=== PATIENT | male | born 1990 | race Two or more races ===

== ENCOUNTER 2025-05-15 20:12 | Emergency (ER) | payer MEDICAID, OTHER ==
[~2025-05-15] VITALS: Ht 185.4 cm; Wt 114.8 kg
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
[2025-05-16] MEDS: KETOROLAC TROMETH 60MG/2ML VIAL IM ONE (00:36)
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
[2025-05-16] MEDS: HYDROcodone-ACET 10/325MG TAB PO ONE (00:37)
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
[2025-05-16] MEDS ORDERED: NABU-74 PO (01:25)
[2025-05-16] MEDS ORDERED: TIZA-142 PO (01:25)
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
[2025-05-16 01:49] VITALS: BP 121/75; PULSE 86; RESP 20; TEMP 98.6; O2SAT 98
== END 2025-05-16 01:51 | disposition home or self-care (01) ==
LOC: ER 20:19
DX: S13.4XXA Sprain of ligaments of cervical spine, initial encounter (principal); S33.5XXA Sprain of ligaments of lumbar spine, initial encounter; S66.912A Strain of unspecified muscle, fascia and tendon at wrist and hand level, left hand, initial encounter; S29.012A Strain of muscle and tendon of back wall of thorax, initial encounter; S20.213A Contusion of bilateral front wall of thorax, initial encounter; S60.221A Contusion of right hand, initial encounter; V89.2XXA Person injured in unspecified motor-vehicle accident, traffic, initial encounter; Y93.89 Activity, other specified; Y92.410 Unspecified street and highway as the place of occurrence of the external cause; Y99.8 Other external cause status
CPT/HCPCS: 71111; 72040; 72070; 72100; 73110; 73130; 96372; 99284; J1885

== ENCOUNTER 2025-06-09 17:30 | Inpatient (IN) | payer MEDICAID ==
[~2025-06-09] VITALS: Ht 185.4 cm; Wt 114.1 kg
--- NOTE | 2025-06-09 18:30 | ED.PDOC ---
History of Present Illness HPI Comments 35-year-old male presents to the ER with prior medical history of gastritis, arthritis and a chief complaint of left lower extremity pain. Patient reports on having had a left lower extremity pain for the past four days in informed his PCP for which scheduled an outpatient ultrasound for which was done today. Patient was informed that there was findings of a possible DVT to the left lower extremity in informed to go to the ER. Patient notes on having had chest tightness associated with shortness a breath for 3-4 days. Denies any other symptoms at this time. Denies chills, fever, N/V/D. No other associated symptoms, modifiers, recent injuries or sick contacts present at this time. Chief Complaint: Lower Extremity Time Seen by MD: 18:15 Reviewed Notes: Nurses Notes, Medications, Allergies Allergies: Coded Allergies: NO KNOWN ALLERGIES (Unverified , 05/15/25) Information Source: Patient Mode of Arrival: Ambulatory Severity: Moderate Timing: Days Duration: Since onset, Days Prehospital treatment: None Past Medical History PAST MEDICAL HISTORY: Arthritis Past Medical History (Other): Gastritis Surgical History: Denies all surgeries Family History Family History: Reviewed,noncontributory to illness, Family hx of Cancer (Kidney) Social History Smoker: Non-Smoker Alcohol: Denies ETOH Use Drugs: Marijuana Lives In: Home Constitutional: denies: chills, diaphoresis, fatigue, fever, malaise, sweats, weakness, others EENTM: denies: blurred vision, double vision, ear bleeding, ear discharge, ear drainage, ear pain, ear ringing, eye pain, eye redness, hearing loss, mouth pain, mouth swelling, nasal discharge, nose bleeding, nose congestion, nose pain, photophobia, tearing, throat pain, throat swelling, voice changes, others Respiratory: reports: shortness of breath; denies: cough, hemoptysis, orthopnea, SOB at rest, SOB with excertion, stridor, wheezing, others Cardiovascular: reports: chest pain; denies: dizzy spells, diaphoresis, Dyspnea on exertion, edema, irregular heart beat, left arm pain, lightheadedness, pal pitations, PND, syncope, others Gastrointestinal: denies: abdomen distended, abdominal pain, blood streaked bowels, constipated, diarrhea, dysphagia, difficulty swallowing, hematemesis, melena, nausea, poor appetite, poor fluid intake, rectal bleeding, rectal pain, vomiting, others Genitourinary: denies: burning, dysuria, flank pain, frequency, hematuria, incontinence, penile discharge, penile sore, pain, testicle pain, testicle swelling, urgency, others Neurological: denies: dizziness, fainting, headache, left sided numbness, left sided weakness, numbness, paresthesia, pre-existing deficit, right sided numbness, right sided weakness, seizure, speech problems, tingling, tremors, weakness, others Musculoskeletal: reports: others (Left lower extremity pain); denies: back pain, gout, joint pain, joint swelling, muscle pain, muscle stiffness, neck pain Integumetry: denies: bruises, change in color, change in hair/nails, dryness, laceration, lesions, lumps, rash, wounds, others Allergic/Immunocompromised: denies: Difficulty Healing, Frequent Infections, Hives, Itching, others Hematologic/Lymphatic: denies: anemia, blood clots, easy bleeding, easy bruising, swollen glands, others Endocrine: denies: excessive hunger, excessive sweating, excessive thirst, excessive urination, flushing, intolerance to cold, intolerance to heat, unexplained weight gain, unexplained weight loss, others Psychiatric: denies: anxiety, bipolar disorder, depression, hopeless, panic disorder, schizophrenia, sleepless, suicidal, others All Other Systems: Reviewed and Negative Physical Exam General Appearance: Moderate Distress HEENT: Normal ENT Inspection, Pharynx Normal, TMs Normal Neck: Full Range of Motion, Non-Tender, Normal, Normal Inspection Respiratory: Chest Non-Tender, Lungs Clear, No Accessory Muscle Use, No Respiratory Distress, Normal Breath Sounds Cardiovascular: No Edema, No JVD, No Murmur, No Gallop, Normal Peripheral Pulses, Regular Rate/Rhythm Breast Exam: Deferred Gastrointestinal: No Organomegaly, Non Tender, No Pulsatile Mass, Normal Bowel Sounds, Soft Genitalia: Deferred Pelvic: Deferred Rectal: Deferred Extremities: No calf tenderness, Normal capillary refill, No pedal edema, Tender (Tenderness to the left lower extremity) Musculoskeletal : Apperance: Normal Neurologic: Alert, senior loan officer II-XII nml as Tested, No Motor Deficits, Normal Affect, Normal Mood, No Sensory Deficits Cerebellar Function: Normal Reflexes: Normal Skin: Dry, Normal Color, Warm Lymphatic: No Adenopathy Was a procedure done? Was a procedure done?: No Differential Dx Considerations may include: Strain, fracture, DVT X-Ray, Labs, Meds, VS Vital Signs Date Time Temp Pulse Resp B/P (MAP) Pulse Ox O2 Delivery O2 Flow Rate FiO2 06/09/25 22:10 97.8 70 17 139/87 (104) 97 97.8 06/09/25 19:44 87 15 157/72 06/09/25 17:45 98.2 120 18 134/80 100 98.2 Lab Test 06/09/25 18:35 Range/Units White Blood Count 7.0 4.4-10.8 10^3/uL Red Blood Count 4.23 L 4.5-5.90 10^6/uL Hemoglobin 12.9 L 13.5-17.5 g/dL Hematocrit 36.0 L 41.0-53.0 % Mean Corpuscular Volume 85.0 80.0-100.0 fL Mean Corpuscular Hemoglobin 30.4 28.0-32.0 pg Mean Corpuscular Hemoglobin Concent 35.8 32.0-36.0 g/dL Red Cell Distribution Width 12.9 11.8-14.3 % Platelet Count 116 L 140-450 10^3/uL Mean Platelet Volume 8.5 6.9-10.8 fL Neutrophils (%) (Auto) 78.5 37.0-80.0 % Lymphocytes (%) (Auto) 15.1 10.0-50.0 % Monocytes (%) (Auto) 6.1 0.0-12.0 % Eosinophils (%) (Auto) 0.0 0.0-7.0 % Basophils (%) (Auto) 0.3 0.0-2.0 % Neutrophils # (Auto) 5.5 1.6-8.6 10 ^3/uL Lymphocytes # (Auto) 1.1 0.4-5.4 10 ^3/uL Monocytes # (Auto) 0.4 0-1.3 10 ^3/uL Eosinophils # (Auto) 0 0-0.8 10 ^3/uL Basophils # (Auto) 0 0-0.2 10 ^3/uL Nucleated Red Blood Cells 0.0 % D-Dimer, Quantitative 1.70 H 0.0-0.49 mg/L FEU Urine Color Yellow Yellow Urine Clarity Clear Clear Urine pH 6.5 5.0-9.0 Urine Specific [place] 1.042 H 1.001-1.035 Urine Protein 1+ H Negative Urine Ketones Trace Negative Urine Blood Negative Negative /uL Urine Nitrite Negative Negative Urine Bilirubin Negative Negative Urine Urobilinogen 6 Negative mg/dL Urine Leukocyte Esterase Negative Negative /uL Urine RBC 1 0 - 3 /hpf Urine Microscopic WBC 1 0-3 /HPF Urine Squamous Epithelial Cells None seen <5 /hpf Urine Bacteria None seen None Seen /hpf Urine Mucus Few None Seen Urine Glucose Normal Normal mg/dL Sodium Level 141 136-145 mmol/L Potassium Level 4.0 3.5-5.1 mmol/L Chloride Level 104 98-107 mmol/L Carbon Dioxide Level 27 20-31 mmol/L Anion Gap 10 5-15 Blood Urea Nitrogen 18 9-23 mg/dL Creatinine 0.89 0.700-1.30 mg/dL Glomerular Filtration Rate Calc 113 >90 mL/min BUN/Creatinine Ratio 20.2 H 10.0-20.0 Serum Glucose 98 74-106 mg/dL Calcium Level 9.3 8.7-10.4 mg/dL Current Medications Medications (Trade) Dose Ordered Sig/Deni Route Start Time Stop Time Status Last Admin Morphine Sulfate 4 mg ONCE ONCE IV 06/09/25 19:30 06/09/25 19:31 DC 06/09/25 19:44 Ondansetron HCl (Zofran) 4 mg ONCE ONCE IV 06/09/25 19:30 06/09/25 19:31 DC 06/09/25 19:44 IV Hep-Lock was established The patient was given morphine 4 mg IV push for the pain The patient was given Zofran 4 mg IV push for the nausea. The chemistry panel is within normal limits. The D-dimer is elevated at 1.7 The urine test is negative for any infection The patient's CBC is within normal limits A CAT scan of the chest was done to rule out PE in his negative The patient is still having significant persistent pain so the patient is being admitted at this time Images Reviewed?: Images reviewed and evaluated by me Time of 1ST Reevaluation: 18:45 Reevaluation 1ST: Unchanged Patient Education/Counseling: Diagnosis, Treatment, Prognosis Family Education/Counseling: No Family Present SEPSIS Sepsis Screen Date sepsis recognized/suspect: Jun 09, 2025 Time Sepsis recognized/suspect: 1752 Recent Procedure: No On Antibiotic Therapy: No Respiratory Rate >20: No Heart Rate >90: Yes Temp<36 C (96.8 F) or >38.3 C: No SBP <90 or MAP <65 mmHG: No New Acute Mental Status Change: No Is the patient on CPAP, BIPAP,: No Physician Orders Heplock Iv (06/09/25 18:26) Ct Angio Chest Contrast (06/09/25 18:26) Vital Signs Date Time Temp Pulse Resp B/P (MAP) Pulse Ox O2 Delivery O2 Flow Rate FiO2 06/09/25 22:10 97.8 70 17 139/87 (104) 97 97.8 06/09/25 19:44 87 15 157/72 06/09/25 17:45 98.2 120 18 134/80 100 98.2 Laboratory Tests Test 06/09/25 18:35 White Blood Count 7.0 10^3/uL (4.4-10.8) Medications Medications Dose Ordered Sig/Deni Route Start Time Stop Time Status Last Admin Dose Admin Morphine Sulfate 4 mg ONCE ONCE IV 06/09/25 19:30 06/09/25 19:31 DC 06/09/25 19:44 Ondansetron HCl 4 mg ONCE ONCE IV 06/09/25 19:30 06/09/25 19:31 DC 06/09/25 19:44 Departure 1 Departure Time of Disposition: 22:31 Impression: Primary Impression: Left leg DVT Qualified Codes: I82.402 - Acute embolism and thrombosis of unspecified deep veins of left lower extremity Additional Impressions: Generalized weakness Intractable pain Disposition: ADMITTED INPATIENT Admit to: Med Surg Condition: Fair Critical Care Note Critical Care Time?: No Stability Stability form required: Yes Unstable for transfer: ED Physician Assesment (Clinical assesment) Heart Score Heart Score: Heart Score Response (Comments) Value History N/A 0 EKG N/A 0 Age N/A 0 Risk Factors N/A 0 Troponin N/A 0 Total 0 I personally scribed for CONCHITA HOGAN MD ([email or web address]) on 06/09/25 at 18:30. Electronically submitted by Luciano Rodriguez ([email or web address]). CONCHITA HOGAN MD Jun 09, 2025 18:30
[2025-06-09 18:58] LABS: Hematocrit 36.0 % (41.0-53.0); Hemoglobin 12.9 g/dL (13.5-17.5); Mean Corpuscular Hemoglobin 30.4 pg (28.0-32.0); Mean Corpuscular Volume 85.0 fL (80.0-100.0); Nucleated Red Blood Cells % 0.0 %
[2025-06-09 19:05] LABS: Chloride 104 mmol/L (98-107); Potassium 4.0 mmol/L (3.5-5.1); Sodium 141 mmol/L (136-145)
[2025-06-09 19:06] LABS: Anion Gap 10 (5-15); Carbon Dioxide 27 mmol/L (20-31)
[2025-06-09 19:07] LABS: Calcium 9.3 mg/dL (8.7-10.4)
[2025-06-09 19:11] LABS: Glucose 98 mg/dL (74-106)
[2025-06-09 19:12] LABS: BUN/Creatinine Ratio 20.2 (10.0-20.0); Blood Urea Nitrogen 18 mg/dL (9-23)
[2025-06-09 19:30] LABS: Urine Protein, UAD 1+ (Negative)
[2025-06-09] MEDS: MORPHINE SULFATE 4 MG/ML SYR/VIAL IV ONE (19:44)
[2025-06-09] MEDS: ONDANSETRON HCL 4 MG/2 ML VIAL IV ONE (19:44)
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
--- NOTE | 2025-06-09 22:42 | DVHHPRES ---
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 rheumatoid arthritis not on any medications presented to the ER left lower extremity swelling since last 3 days, associated with intractable pain. The patient denies any recent travel history. 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 He also reports having chest pressure for the same duration, associated with fatigue and sweating. He also reports having shortness of breaths, increased during breathing. The patient's pulse on admission was 120, later it was in 70s. D- dimer is elevated at 1.70. He denies any fever, sick contacts or any other complaints. Past medical history: As above Past surgical history: Denied Allergies: None Smoking: None Alcohol: Previously heavy drinker for 1 year. Quit long time ago. Home medications: None, patient avoids ibuprofen and naproxen due to gastritis Family history: Kidney cancer dad. 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 Code status: Full code Review of Systems Allergies: Coded Allergies: NO KNOWN ALLERGIES (Unverified , 05/15/25) Medications Current Medications Medications Dose Ordered Sig/Deni Route Start Time Stop Time Status Last Admin Dose Admin Acetaminophen/ Hydrocodone Bitart 1 tab Q4HP PRN PO 06/09/25 22:45 UNV Enoxaparin Sodium 110 mg Q12HR SC 06/10/25 10:00 UNV Exam Vital Signs Vital Signs Date Time Temp Pulse Resp B/P (MAP) Pulse Ox O2 Delivery O2 Flow Rate FiO2 06/09/25 22:10 97.8 70 17 139/87 (104) 97 97.8 Exam Pt is lying on bed General Appearance: Alert, Oriented X3, Cooperative, Mild distress HEENT: Atraumatic, Mucous membranes moist/pink Respiratory: Clear to auscultation, Normal air movement, No added sounds Cardiovascular: Regular rate, Normal S1, Normal S2, No murmurs Abdominal/ : Active bowel sounds, Soft, no distention, no tenderness Extremities: No edema, Normal pulses, No tenderness/swelling Skin: No Significant rash, except past surgical scars Neuro: Normal speech, sensorimotor deficits none Psych/Mental Status: Mental status NL, Mood NL Nurse was there as property custodian during examination Labs/Xrays Labs Test 06/09/25 18:35 Range/Units White Blood Count 7.0 4.4-10.8 10^3/uL Red Blood Count 4.23 L 4.5-5.90 10^6/uL Hemoglobin 12.9 L 13.5-17.5 g/dL Hematocrit 36.0 L 41.0-53.0 % Mean Corpuscular Volume 85.0 80.0-100.0 fL Mean Corpuscular Hemoglobin 30.4 28.0-32.0 pg Mean Corpuscular Hemoglobin Concent 35.8 32.0-36.0 g/dL Red Cell Distribution Width 12.9 11.8-14.3 % Platelet Count 116 L 140-450 10^3/uL Mean Platelet Volume 8.5 6.9-10.8 fL Neutrophils (%) (Auto) 78.5 37.0-80.0 % Lymphocytes (%) (Auto) 15.1 10.0-50.0 % Monocytes (%) (Auto) 6.1 0.0-12.0 % Eosinophils (%) (Auto) 0.0 0.0-7.0 % Basophils (%) (Auto) 0.3 0.0-2.0 % Neutrophils # (Auto) 5.5 1.6-8.6 10 ^3/uL Lymphocytes # (Auto) 1.1 0.4-5.4 10 ^3/uL Monocytes # (Auto) 0.4 0-1.3 10 ^3/uL Eosinophils # (Auto) 0 0-0.8 10 ^3/uL Basophils # (Auto) 0 0-0.2 10 ^3/uL Nucleated Red Blood Cells 0.0 % D-Dimer, Quantitative 1.70 H 0.0-0.49 mg/L FEU Urine Color Yellow Yellow Urine Clarity Clear Clear Urine pH 6.5 5.0-9.0 Urine Specific [place] 1.042 H 1.001-1.035 Urine Protein 1+ H Negative Urine Ketones Trace Negative Urine Blood Negative Negative /uL Urine Nitrite Negative Negative Urine Bilirubin Negative Negative Urine Urobilinogen 6 Negative mg/dL Urine Leukocyte Esterase Negative Negative /uL Urine RBC 1 0 - 3 /hpf Urine Microscopic WBC 1 0-3 /HPF Urine Squamous Epithelial Cells None seen <5 /hpf Urine Bacteria None seen None Seen /hpf Urine Mucus Few None Seen Urine Glucose Normal Normal mg/dL Sodium Level 141 136-145 mmol/L Potassium Level 4.0 3.5-5.1 mmol/L Chloride Level 104 98-107 mmol/L Carbon Dioxide Level 27 20-31 mmol/L Anion Gap 10 5-15 Blood Urea Nitrogen 18 9-23 mg/dL Creatinine 0.89 0.700-1.30 mg/dL Glomerular Filtration Rate Calc 113 >90 mL/min BUN/Creatinine Ratio 20.2 H 10.0-20.0 Serum Glucose 98 74-106 mg/dL Calcium Level 9.3 8.7-10.4 mg/dL SEPSIS Sepsis Screen Date sepsis recognized/suspect: Jun 09, 2025 Time Sepsis recognized/suspect: 1751 Recent Procedure: No On Antibiotic Therapy: No Respiratory Rate >20: No Heart Rate >90: Yes Temp<36 C (96.8 F) or >38.3 C: No SBP <90 or MAP <65 mmHG: No New Acute Mental Status Change: No Is the patient on CPAP, BIPAP,: No Physician Orders [place] Iv (06/09/25 18:26) Ct Angio Chest Contrast (06/09/25 18:26) Admit (06/09/25 22:35) Code Status (06/09/25 22:35) Hydrocodone-Acet 5/325mg Tab ([place] 5/32 (06/09/25 22:45) Complete Blood Count (06/10/25 04:00) Comprehensive Metabolic Panel (06/10/25 04:00) Cardiac Diet-2gna,Lofat,Lochol (06/10/25 Breakfast) Stat Ekg For Chest Pain (06/09/25 22:35) Notify Md Of Changes From Base (06/09/25 22:35) Java J2Ee Application Developer For 24 Hours (06/09/25 22:35) Emergency Dysrhythmia Protocol (06/09/25 22:35) Rhythm Strips Once Every Shift (06/09/25 22:35) Enoxaparin Sodium (Lovenox) (06/10/25 10:00) Enoxaparin Sodium (Lovenox) (06/09/25 22:45) Troponin-I Hs (06/09/25 22:40) Troponin-I Hs (06/09/25 23:40) Troponin-I Hs (06/10/25 01:40) Chest Xray 1 View (06/09/25 22:40) Urinalysis (06/09/25 22:40) Drug Screen (06/09/25 22:40) Vital Signs Date Time Temp Pulse Resp B/P (MAP) Pulse Ox O2 Delivery O2 Flow Rate FiO2 06/09/25 22:10 97.8 70 17 139/87 (104) 97 97.8 06/09/25 19:44 87 15 157/72 06/09/25 17:45 98.2 120 18 134/80 100 98.2 Laboratory Tests Test 06/09/25 18:35 White Blood Count 7.0 10^3/uL (4.4-10.8) Medications Medications Dose Ordered Sig/Deni Route Start Time Stop Time Status Last Admin Dose Admin Morphine Sulfate 4 mg ONCE ONCE IV 06/09/25 19:30 06/09/25 19:31 DC 06/09/25 19:44 4 MG Ondansetron HCl 4 mg ONCE ONCE IV 06/09/25 19:30 06/09/25 19:31 DC 06/09/25 19:44 4 MG Assessment/Plan Assessment/Plan Left lower extremity DVT (wells score for DVT 4) Ruled out PE D-dimer 1.7 CT angiography:No pulmonary embolus or other acute abnormality. Left lower extremity Doppler ultrasound Occlusive thrombus throughout left lower extremity extending from the femoral vein into below-knee veins. Therapeutic Lovenox started. 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 Hepatic panel ordered GI prophylaxis: Pantoprazole DVT prophylaxis: Lovenox Diet: Cardiac Goals of care discussed with the patient for more than 27 minutes: Full code status Case discussed with , patient and RN Plan discussed with: Patient, Other (RN) My Orders Orders - RYAN TAI RESIDENT Procedure Category Date Status Time Admit ADMIT 06/09/25 Transmitted 22:35 Code Status CODE 06/09/25 Transmitted 22:35 Hydrocodone-Acet PHA 06/09/25 Logged 5/325mg Tab ([place] 22:45 Complete Blood Count LAB 06/10/25 Verified 04:00 Comprehensive LAB 06/10/25 Verified Metabolic Panel 04:00 Cardiac DIET 06/10/25 Transmitted Diet-2gna,Lofat,Lochol Breakfast Stat Ekg For Chest [facility] 06/09/25 In Process Pain 22:35 Notify Of Changes [facility] 06/09/25 In Process From Base 22:35 Java J2Ee Application Developer For [facility] 06/09/25 In Process 24 Hours 22:35 Emergency Dysrhythmia [facility] 06/09/25 In Process Protocol 22:35 Rhythm Strips Once [facility] 06/09/25 In Process Every Shift 22:35 Enoxaparin Sodium PHA 06/10/25 Logged (Lovenox) 10:00 Enoxaparin Sodium PHA 06/09/25 Logged (Lovenox) 22:45 Troponin-I Hs LAB 06/09/25 Transmitted 22:40 Troponin-I Hs LAB 06/09/25 Transmitted 23:40 Troponin-I Hs LAB 06/10/25 Verified 01:40 Chest Xray 1 View XY 06/09/25 Logged 22:40 Urinalysis LAB 06/09/25 Transmitted 22:40 Drug Screen LAB 06/09/25 Transmitted 22:40 RYAN TAI RESIDENT Jun 09, 2025 22:42 PEPE CHOPRA RESIDENT Jun 10, 2025 05:13
[2025-06-09 23:17] LABS: Amphetamine Screen, Urine Neg (NEGATIVE); Cannabinoid Screen, Urine Pos (NEGATIVE); Opiate Scree,Urine Neg (NEGATIVE)
[2025-06-09 23:20] LABS: Barbiturate Scree,Urine Neg (NEGATIVE); Benzodiazephine Screen, Urine Neg (NEGATIVE); Cocaine Screen, Urine Pos (NEGATIVE); Phencyclidine Screen, Urine Neg (NEGATIVE)
--- NOTE | 2025-06-09 23:36 | DVH ---
CHEST RADIOGRAPH Indication: Chest pain Technique: Single frontal view of the chest was obtained COMPARISON: CT CT ANGIO CHEST CONTRAST on DOS: 06/09/25, XY RIBS BILATERAL on DOS: 05/15/25 FINDINGS: Lines and Tubes: None Lungs: Clear Pleura: No effusion. No pneumothorax. Cardiomediastinal contours: Unremarkable Bones: Unremarkable IMPRESSION: 1. No acute disease.
[2025-06-09 23:51] LABS: Alanine Aminotransferase 32.0 U/L (7-40); Albumin 4.3 g/dL (3.2-4.8); Alkaline Phosphatase 108.0 U/L (46-116); Bilirubin, Direct 0.2 mg/dL (<0.3); Bilirubin, Total 0.6 mg/dL (0.2-1.0); Total Protein 7.2 g/dL (5.7-8.2)
[2025-06-10] VITALS (7 sets, daily range): BP systolic 117–138; BP diastolic 69–82; PULSE 87–101; RESP 16–18; TEMP 97.9–98.9; O2SAT 96–99
--- NOTE | 2025-06-10 00:35 | DVH ---
Bilateral lower extremity venous duplex Clinical History: LL DVT Comparison: None Technique: Duplex Doppler evaluation of the deep venous systems of both lower extremities from the common femoral veins to the popliteal veins including color Doppler and spectral/pulsed waveform analysis was performed. Findings: RIGHT SIDE: The common femoral vein demonstrates appropriate compressibility and waveform variability. There is compressibility/patency of the great saphenous vein at the proximal thigh. The femoral vein demonstrates appropriate compressibility and waveform variability. The deep femoral vein demonstrates appropriate compressibility and waveform variability. The popliteal vein demonstrates appropriate compressibility and waveform variability. There is normal compressibility at the tibioperoneal trunk. LEFT SIDE: The common femoral vein demonstrates appropriate compressibility and waveform variability. There is compressibility/patency of the great saphenous vein at the proximal thigh. The femoral vein demonstrates occlusive thrombus. The deep femoral vein demonstrates occlusive thrombus. The popliteal vein demonstrates occlusive thrombus. There is also occlusive thrombus within the posterior tibial ein and peroneal veins. Impression: Occlusive thrombus throughout left lower extremity extending from the femoral vein into below-knee veins.
[2025-06-10] MEDS: diphenhydrAMINE HCL 50 MG/1 ML VL IV ONE (01:54)
[2025-06-10] MEDS: IOHEXOL 350 MG/ML 100ML IJ ONE (01:54)
[2025-06-10] MEDS: diphenhydrAMINE HCL 50 MG/1 ML VL ONE (01:54)
[2025-06-10] MEDS: ENOXAPARIN SOD 120 MG/0.8 ML SYRINGE SC ONE (01:58)
[2025-06-10] MEDS: HYDROcodone-ACET 5/325MG TAB PO PRN (01:58)
[2025-06-10 06:35] LABS: Hematocrit 31.5 % (41.0-53.0); Hemoglobin 11.4 g/dL (13.5-17.5); Mean Corpuscular Hemoglobin 30.5 pg (28.0-32.0); Mean Corpuscular Volume 84.4 fL (80.0-100.0); Nucleated Red Blood Cells % 0.0 %
[2025-06-10 07:04] LABS: Alanine Aminotransferase 26 U/L (7-40); Alkaline Phosphatase 95 U/L (46-116); Anion Gap 10 (5-15); BUN/Creatinine Ratio 20.5 (10.0-20.0); Blood Urea Nitrogen 16 mg/dL (9-23); Calcium 8.7 mg/dL (8.7-10.4); Carbon Dioxide 26 mmol/L (20-31); Chloride 101 mmol/L (98-107); Glucose 90 mg/dL (74-106); Potassium 3.8 mmol/L (3.5-5.1); Sodium 137 mmol/L (136-145); Total Protein 7.0 g/dL (5.7-8.2)
[2025-06-10 07:05] LABS: Albumin 4.0 g/dL (3.2-4.8); Bilirubin, Total 0.9 mg/dL (0.2-1.0)
[2025-06-10] MEDS: FOLIC ACID 1 MG TAB PO SCH (10:07)
[2025-06-10] MEDS: THIAMINE HCL 100 MG TAB PO SCH (10:07)
[2025-06-10] MEDS: ENOXAPARIN SOD 120 MG/0.8 ML SYRINGE SC SCH (10:08)
[2025-06-10 11:49] LABS: INR 1.06 (0.9-1.15); Partial Thromboplastin Time 57.5 SEC (24.5-34.5); Prothrombin Time 11.2 sec (9.3-11.8)
--- NOTE | 2025-06-10 17:28 | DVHPNRES ---
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 rheumatoid arthritis not on any medications presented to the ER left lower extremity swelling since last 3 days, associated with intractable pain. The patient denies any recent travel history. 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 He also reports having chest pressure for the same duration, associated with fatigue and sweating. He also reports having shortness of breaths, increased during breathing. The patient's pulse on admission was 120, later it was in 70s. D- dimer is elevated at 1.70. He denies any fever, sick contacts or any other complaints. Past medical history: As above Past surgical history: Denied Allergies: None Smoking: None Alcohol: Previously heavy drinker for 1 year. Quit long time ago. Home medications: None, patient avoids ibuprofen and naproxen due to gastritis Family history: Kidney cancer dad. 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 status: Full code Objective vital signs Vital Sign Date Time Temp Pulse Resp B/P (MAP) Pulse Ox O2 Delivery O2 Flow Rate FiO2 06/10/25 12:30 98.2 90 16 138/71 (93) 96 98.2 06/10/25 07:30 Room Air* 0 21 medications Current Medications Medications Dose Ordered Sig/Deni Route Start Time Stop Time Status Last Admin Dose Admin Acetaminophen/ Hydrocodone Bitart 1 tab Q4HP PRN PO 06/09/25 22:45 06/10/25 11:27 1 TAB Enoxaparin Sodium 110 mg Q12HR SC 06/10/25 10:00 06/10/25 10:08 110 MG Thiamine HCl 100 mg DAILY PO 06/10/25 10:00 06/10/25 10:07 100 MG Folic Acid 1 mg DAILY PO 06/10/25 10:00 06/10/25 10:07 1 MG Examination Pt is lying on bed General Appearance: Alert, Oriented X3, Cooperative, Mild distress HEENT: Atraumatic, Mucous membranes moist/pink Respiratory: Clear to auscultation, Normal air movement, No added sounds Cardiovascular: Regular rate, Normal S1, Normal S2, No murmurs Abdominal/ : Active bowel sounds, Soft, no distention, no tenderness Extremities: No edema, Normal pulses, No tenderness/swelling Skin: No Significant rash, except past surgical scars Neuro: Normal speech, sensorimotor deficits none Psych/Mental Status: Mental status NL, Mood NL Nurse was there as director peoplesoft during examination laboratory and microbiology Laboratory Tests 06/10/25 05:59 Test 06/10/25 05:59 Range/Units Serum Glucose 90 74-106 mg/dL Problem List/Assessment/Plan Problem List/Assessment/Plan Assessment/Plan Left lower extremity DVT (wells score for DVT 4) Ruled out PE D-dimer 1.7 CT angiography:No pulmonary embolus or other acute abnormality. Left lower extremity Doppler ultrasound Occlusive thrombus throughout left lower extremity extending from the femoral vein into below-knee veins. Therapeutic Lovenox started. 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
[2025-06-10] MEDS: ONDANSETRON HCL 4 MG/2 ML VIAL IV ONE (20:40)
[2025-06-10] MEDS: KETOROLAC TROMETH 30 MG/ML 1ML VIAL IV ONE (20:53)
[2025-06-11 01:00] VITALS: BP 127/76; PULSE 91; RESP 18; TEMP 98.2; O2SAT 98
[2025-06-11 05:00] VITALS: BP 139/86; PULSE 88; RESP 18; TEMP 99; O2SAT 95
[2025-06-11 06:14] LABS: Hematocrit 33.5 % (41.0-53.0); Hemoglobin 12.1 g/dL (13.5-17.5); Mean Corpuscular Hemoglobin 30.9 pg (28.0-32.0); Mean Corpuscular Volume 85.4 fL (80.0-100.0); Nucleated Red Blood Cells % 0.1 %
[2025-06-11 06:32] LABS: Albumin 4.0 g/dL (3.2-4.8); Anion Gap 11 (5-15); BUN/Creatinine Ratio 21.3 (10.0-20.0); Blood Urea Nitrogen 19 mg/dL (9-23); Calcium 9.1 mg/dL (8.7-10.4); Carbon Dioxide 26 mmol/L (20-31); Chloride 101 mmol/L (98-107); Glucose 79 mg/dL (74-106); Potassium 4.1 mmol/L (3.5-5.1); Sodium 138 mmol/L (136-145); Total Protein 7.2 g/dL (5.7-8.2)
[2025-06-11 06:33] LABS: Bilirubin, Total 1.0 mg/dL (0.2-1.0)
[2025-06-11 06:35] LABS: Alanine Aminotransferase 58 U/L (7-40); Alkaline Phosphatase 151 U/L (46-116)
[2025-06-11 08:00] VITALS: PULSE 106; PULSE 75; RESP 18
[2025-06-11] MEDS: ONDANSETRON HCL 4 MG/2 ML VIAL IV PRN (08:18)
[2025-06-11 09:00] VITALS: BP 146/89; PULSE 102; RESP 18; TEMP 98.3; O2SAT 97
[2025-06-11 12:36] VITALS: BP 142/95; PULSE 107; RESP 17; TEMP 99; O2SAT 96
--- NOTE | 2025-06-11 14:14 | DVHPNRES ---
Progress Note Date Seen: Jun 11, 2025 Resident Creating Document: RAYMON LAWRENCE Medical Necessity Reason Pt with a Central, PICC or Fol: No Subjective Review of Systems Patient seen at bedside. Pain and swelling in the left lower extremity has come down. On therapeutic Lovenox Joaquim Schroeder, 35-year-old male with previous history of gastritis, unknown liver disease likely alcohol induced? rheumatoid arthritis not on any medications presented to the ER left lower extremity swelling since last 3 days, associated with intractable pain. The patient denies any recent travel history. 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 He also reports having chest pressure for the same duration, associated with fatigue and sweating. He also reports having shortness of breaths, increased during breathing. The patient's pulse on admission was 120, later it was in 70s. D- dimer is elevated at 1.70. He denies any fever, sick contacts or any other complaints. Past medical history: As above Past surgical history: Denied Allergies: None Smoking: Marijuana Alcohol: Previously heavy drinker for 1 year. Quit long time ago. 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 Code status: Full code Objective vital signs Vital Sign Date Time Temp Pulse Resp B/P (MAP) Pulse Ox O2 Delivery O2 Flow Rate FiO2 06/11/25 12:36 99.0 107 17 142/95 (111) 96 99.0 06/11/25 08:00 Room Air* 0 21 Total Intake and Output 06/10/25 06/10/25 06/11/25 15:00 23:00 07:00 Intake Total 100 ml 600 ml 300 ml Balance 100 ml 600 ml 300 ml medications Current Medications Medications Dose Ordered Sig/Deni Route Start Time Stop Time Status Last Admin Dose Admin Enoxaparin Sodium 110 mg Q12HR SC 06/10/25 10:00 06/11/25 09:36 110 MG Thiamine HCl 100 mg DAILY PO 06/10/25 10:00 06/11/25 09:35 100 MG Folic Acid 1 mg DAILY PO 06/10/25 10:00 06/11/25 09:35 1 MG Ondansetron HCl 4 mg Q4HPRN PRN IV 06/10/25 20:30 06/11/25 08:18 4 MG Examination Pt is lying on bed General Appearance: Alert, Oriented X3, Cooperative, Mild distress HEENT: Atraumatic, Mucous membranes moist/pink Respiratory: Clear to auscultation, Normal air movement, No added sounds Cardiovascular: Regular rate, Normal S1, Normal S2, No murmurs Abdominal/ : Active bowel sounds, Soft, no distention, no tenderness Extremities: No edema, Normal pulses, No tenderness/swelling Skin: No Significant rash, except past surgical scars Neuro: Normal speech, sensorimotor deficits none Psych/Mental Status: Mental status NL, Mood NL Nurse was there as produce assistant during examination laboratory and microbiology Laboratory Tests 06/11/25 04:36 Test 06/11/25 04:36 Range/Units Serum Glucose 79 74-106 mg/dL Labs and/or images reviewed: Labs reviewed by me, Image(s) reviewed by me Problem List/Assessment/Plan Problem List/Assessment/Plan Assessment/Plan Left lower extremity DVT (wells score for DVT 4) Ruled out PE D-dimer 1.7 CT angiography:No pulmonary embolus or other acute abnormality. Left lower extremity Doppler ultrasound Occlusive thrombus throughout left lower extremity extending from the femoral vein into below-knee veins. Therapeutic Lovenox started. Will switch to oral Eliquis in order discharged home [place] and morphine for pain management IR consulted- not recommending any procedure. Advised to continue clot lysis. 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 Hepatitis panel Obesity, grade 1 Counseled on the importance of diet and exercise GI prophylaxis: Pantoprazole DVT prophylaxis: Eliquis Diet: Cardiac Goals of care discussed for 20 minutes: Full code status Case discussed with Plan discussed with: Patient, Other (Nurse) Date of Service: Jun 11, 2025 Billing Provider: AYLIN LANCE MD Common Visit Codes: [id number] INP/OBS CARE(HIGH) Secondary Visit Codes: [id number] CHNG SMOKING >10MIN (Counseled on polysubstance use cessation including cocaine, fentanyl, and marijuana for 16 minutes), [id number] CARE PLAN 30 MINUTES (20 minutes) RAYMON LAWRENCE RESIDENT Jun 11, 2025 14:14 AYLIN LANCE MD Jun 14, 2025 12:38
[2025-06-11] MEDS ORDERED: MORPHINE SULFATE INJ 2 MG/ml SYRG IV PRN (15:30)
[2025-06-11] MEDS: ACETAMINOPHEN 325 MG TAB PO SCH (15:30)
[2025-06-11] MEDS: HYDROcodone-ACET 5/325MG TAB PO PRN (15:38)
[2025-06-11] MEDS ORDERED: APIX5TAB PO (16:02)
--- NOTE | 2025-06-11 16:14 | DVHDSRES ---
Discharge Summary Date of Admission Resident Creating Document: RAYMON LAWRENCE RESIDENT Jun 09, 2025 at 22:35 Date of Discharge: Jun 11, 2025 Admitting Diagnosis Left lower extremity swelling and pain Labs/Diagnostic Data: Laboratory Results Test 06/11/25 04:36 06/10/25 11:20 06/10/25 05:59 06/09/25 22:51 White Blood Count 5.0 10^3/uL (4.4-10.8) Red Blood Count 3.93 10^6/uL (4.5-5.90) Hemoglobin 12.1 g/dL (13.5-17.5) Hematocrit 33.5 % (41.0-53.0) Mean Corpuscular Volume 85.4 fL (80.0-100.0) Mean Corpuscular Hemoglobin 30.9 pg (28.0-32.0) Mean Corpuscular Hemoglobin Concent 36.1 g/dL (32.0-36.0) Red Cell Distribution Width 12.9 % (11.8-14.3) Platelet Count 128 10^3/uL (140-450) Mean Platelet Volume 8.7 fL (6.9-10.8) Neutrophils (%) (Auto) 65.0 % (37.0-80.0) Lymphocytes (%) (Auto) 25.5 % (10.0-50.0) Monocytes (%) (Auto) 9.0 % (0.0-12.0) Eosinophils (%) (Auto) 0.0 % (0.0-7.0) Basophils (%) (Auto) 0.5 % (0.0-2.0) Neutrophils # (Auto) 3.3 10 ^3/uL (1.6-8.6) Lymphocytes # (Auto) 1.3 10 ^3/uL (0.4-5.4) Monocytes # (Auto) 0.5 10 ^3/uL (0-1.3) Eosinophils # (Auto) 0 10 ^3/uL (0-0.8) Basophils # (Auto) 0 10 ^3/uL (0-0.2) Nucleated Red Blood Cells 0.1 % Sodium Level 138 mmol/L (136-145) Potassium Level 4.1 mmol/L (3.5-5.1) Chloride Level 101 mmol/L (98-107) Carbon Dioxide Level 26 mmol/L (20-31) Anion Gap 11 (5-15) Blood Urea Nitrogen 19 mg/dL (9-23) Creatinine 0.89 mg/dL (0.700-1.30) Glomerular Filtration Rate Calc 113 mL/min (>90) BUN/Creatinine Ratio 21.3 (10.0-20.0) Serum Glucose 79 mg/dL (74-106) Calcium Level 9.1 mg/dL (8.7-10.4) Total Bilirubin 1.0 mg/dL (0.2-1.0) Aspartate Amino Transferase (AST) 67 U/L (13-40) Alanine Aminotransferase (ALT) 58 U/L (7-40) Alkaline Phosphatase 151 U/L (46-116) Total Protein 7.2 g/dL (5.7-8.2) Albumin 4.0 g/dL (3.2-4.8) Prothrombin Time 11.2 sec (9.3-11.8) Prothrombin Time INR 1.06 (0.9-1.15) Activated Partial Thromboplast Time 57.5 SEC (24.5-34.5) Plasma/Serum Blood Alcohol < 3.0 mg/dL (<10) Direct Bilirubin 0.2 mg/dL (<0.3) Troponin I High Sensitivity < 3 ng/L (</=54) Test 06/09/25 18:35 D-Dimer, Quantitative 1.70 mg/L FEU (0.0-0.49) Urine Color Yellow (Yellow) Urine Clarity Clear (Clear) Urine pH 6.5 (5.0-9.0) Urine Specific [place] 1.042 (1.001-1.035) Urine Protein 1+ (Negative) Urine Ketones Trace (Negative) Urine Blood Negative /uL (Negative) Urine Nitrite Negative (Negative) Urine Bilirubin Negative (Negative) Urine Urobilinogen 6 mg/dL (Negative) Urine Leukocyte Esterase Negative /uL (Negative) Urine RBC 1 /hpf (0 - 3) Urine Microscopic WBC 1 /HPF (0-3) Urine Squamous Epithelial Cells None seen /hpf (<5) Urine Bacteria None seen /hpf (None Seen) Urine Mucus Few (None Seen) Urine Glucose Normal mg/dL (Normal) Urine Opiates Screen Neg (NEGATIVE) Urine Fentanyl Screen Pos (NEGATIVE) Urine Barbiturates Screen Neg (NEGATIVE) Urine Phencyclidine Screen Neg (NEGATIVE) Urine Amphetamines Screen Neg (NEGATIVE) Urine Benzodiazepines Screen Neg (NEGATIVE) Urine Cocaine Screen Pos (NEGATIVE) Urine Cannabinoids Screen Pos (NEGATIVE) Other Laboratory Tests 06/11/25 04:36 Brief Hx & Hospital Course: Joaquim Schroeder, 35-year-old male with previous history of gastritis, 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 The patient denied any recent travel history. 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 He also reported having chest pressure for the same duration, associated with fatigue and sweating. He also reported having shortness of breaths, increased during breathing. D-dimer was elevated at 1.70. ultrasound revealed DVT of left lower extremity. CT pulmonary angiography revealed no emboli. He was treated with therapeutic Lovenox and pain management. IR was consulted and they decided the there is no intervention at this time. The patient left the hospital against medical advice. He was advised to start taking Eliquis, counseled on the dosing instructions prescription sent to his preferred pharmacy before he left. Physical exam as documented in the progress note of the day of discharge; leaving AMA Discussed with Dr. 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 Obesity, grade 1 Discharge Disposition: AMA Discharge Instruct/Medications Diet: See Comment Diet comment: Left AMA Activity: See Comment Activity comment: Left AMA Follow Up/Referral: Advised to follow up in discharge clinic and to see Rheumatology along with Hematology Medications: Eliquis 10 mg twice a day for one week then 5 mg twice a day after that sent to the pharmacy; 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 Patient was counseled about treatment plan, medications, possible side effects, patientverbalized understanding. All questions were answered to the best of my ability. This discharge took greater then 30 minutes in planning, reviewing documentation, counseling the patient, and discussing with other team members." ASSESSMENT ASSESSMENT Assessment Date of Service: Jun 11, 2025 Billing Provider: AYLIN LANCE MD Common Visit Codes: 42427-JJP/OBS DISCH DAY >30min RAYMON LAWRENCE Jun 11, 2025 16:14 AYLIN LANCE MD Jun 14, 2025 12:42
[2025-06-11] MEDS ORDERED: APIXABAN 5 MG TAB PO SCH (19:30)
[2025-06-12 10:57] LABS: Hepatitis A Total Antibody Positive (Negative); Hepatitis B Surface Antigen Negative (Negative); Hepatitis C Antibody Negative (Negative)
== END 2025-06-11 16:05 | disposition home or self-care (01) | DRG 197 ==
LOC: ER 17:30 → OVERFLOW 22:35 → TELE-WESTW 06-10 18:45
PROVIDERS: ADMIT Student in an Organized Health Care Education/Training Program; ATTEND Student in an Organized Health Care Education/Training Program
DX: I82.412 Acute embolism and thrombosis of left femoral vein (principal); E66.811 Obesity, class 1; M06.9 Rheumatoid arthritis, unspecified; F19.10 Other psychoactive substance abuse, uncomplicated; Z53.29 Procedure and treatment not carried out because of patient's decision for other reasons; Z80.51 Family history of malignant neoplasm of kidney; Z79.899 Other long term (current) drug therapy; Z68.33 Body mass index [BMI] 33.0-33.9, adult
CPT/HCPCS: 36415; 71045; 71275; 80048; 80053; 80076; 80307; 80320; 81001; 84484; 85025; 85379; 85610; 85730; 86704; 86706; 86708; 86803; 87340; 93970; 96374; 96375; G0378; J1885; J2405